=== PATIENT | male | born 1965 ===

== ENCOUNTER 2023-05-24 10:19 | Emergency (ER) | payer SELFPAY ==
[~2023-05-24] VITALS: Ht 175.3 cm; Wt 108.9 kg
[2023-05-24 10:25] VITALS: BP 138/85
== END 2023-05-24 12:30 | disposition home or self-care (01) ==
LOC: ER 10:19
DX: H00.016 Hordeolum externum left eye, unspecified eyelid (principal)
CPT/HCPCS: 99283